=== PATIENT | female | born 1955 | race Caucasian/White ===

== ENCOUNTER → 2018-09-11 | Outpatient (CLI) | payer OTHER | LOC: M.RAD 11:20 | DX: Z12.31 Encounter for screening mammogram for malignant neoplasm of breast (principal) ==

== ENCOUNTER → 2019-09-12 | Outpatient (CLI) | payer OTHER | LOC: M.RAD 10:00 | DX: Z12.31 Encounter for screening mammogram for malignant neoplasm of breast (principal) ==

== ENCOUNTER → 2019-09-17 | Outpatient (CLI) | payer OTHER | LOC: M.RAD 09-15 16:33 | DX: R92.1 Mammographic calcification found on diagnostic imaging of breast (principal) ==

== ENCOUNTER → 2019-09-18 | Outpatient (CLI) | payer OTHER ==
--- NOTE | 2019-09-22 15:06 | PATH ---
[address] [address] PATHOLOGY RPT PROCEDURE Name: ENRICO SANABRIA Room: [facility] Aldo#: [id number] Admission: 09/18/19 Date of : 55 Discharge: Report #: [id number] Path Case #: [id number] [facility] Accession Number: [id number] . 01 Material submitted: . breast - LEFT BREAST STEREOTACTIC BIOPSY FOR CALCIFICATION. Modifiers: left . 01 Clinical history: . Left breast stereotactic biopsy for calcifications . 02 Diagnosis: Breast, left, core needle biopsy: - DUCTAL CARCINOMA IN SITU, CRIBRIFORM TYPE, NUCLEAR GRADE II/III, WITH FOCAL MICROCALCIFICATION. Size of DCIS: 4 mm, at least. - Sclerosing adenosis, focal. . (Please see comment) (LEELA:rigoberto; 09/19/2019) QTP 09/22/2019 1446 Local . 02 Comment: No evidence of invasive carcinoma is seen with the p63 and smooth muscle myosin immunoperoxidase stains. . This case has also been reviewed by Dr. Zoila Cordero MD, who agrees with the diagnosis. . The tumor present in block A3 will be sent for estrogen and progesterone expression by image analysis. The results will be issued separately. . The findings in this case were discussed with Anel nurse navigator for [facility] on 09/22/2019. (SKM:rigoberto; 09/19/2019) . 02 Electronically signed: . Link Espino MD, Pathologist NPI- [id number] . 01 Gross description: . Received in formalin labeled "Enrico Sanabria, left breast calcifications," are multiple needle cores of yellow-dubois fibrofatty tissue measuring 2.1 x 2.9 x 0.6 cm in aggregate dimensions. Additionally received in the same container is a blue plastic cassette containing multiple needle cores of yellow-dubois fibrofatty tissue measuring 2.9 x 1.9 x 0.7 cm in aggregate dimensions. The tissue in the cassette is transferred to A1 and the remaining tissue is submitted in its entirety in cassette A2 and A3. The cold ischemic time is 5 [place] [address] PATHOLOGY RPT PROCEDURE Name: ISIS SANABRIAMARIYA Eddy Room: [facility]#: [id number] Admission: 09/18/19 Date of : 55 Discharge: Report #: [id number] Path Case #: [id number] formalin fixation time is 15 hours and 15 minutes. (TSD; 09/18/2019) TOB/TOB 09/18/2019 1718 Local . 02 Pathologist provided ICD-10: D05.12, N60.22 . 02 CPT . 443478, V48755, R43002 Specimen Comment: A courtesy copy of this report has been sent to [phone] Specimen Comment: [phone], Specimen Comment: Report sent to ,DR ANDERSON,DR LEIVA / DR GLASER Performed at: 01 [facility] [address] [id number] MD Mark Hay MD Phone: [phone] Performed at: 02 [facility] [address] [id number] MD Alireza Gonzáles MD Phone: [phone]
== END | disposition home or self-care (01) ==
LOC: M.RAD 07:43
DX: N60.42 Mammary duct ectasia of left breast (principal); D05.12 Intraductal carcinoma in situ of left breast; N60.22 Fibroadenosis of left breast; R92.1 Mammographic calcification found on diagnostic imaging of breast

== ENCOUNTER → 2019-09-30 | Outpatient (CLI) | payer OTHER ==
[~2019-09-30] MED LIST: OMEPRAZOLE 20 M20 M1 PO; PROZAC20 MG PO; XANAX 0.25 MG0.25 MG PO
[2019-09-30 14:09] LABS: CREATININE 0.8 mg/dL (0.6-1.3)
== END ==
LOC: M.MRI 13:20
PROVIDERS: Surgery
DX: C50.412 Malignant neoplasm of upper-outer quadrant of left female breast (principal); D05.12 Intraductal carcinoma in situ of left breast

== ENCOUNTER → 2019-10-28 | Day surgery (SDC) | payer OTHER ==
[2019-10-28 11:56] LABS: HEMATOCRIT 38.7 % (37.0-47.0); HEMOGLOBIN 13.3 gm/dL (12.0-15.0); MCH 29.3 pg (26.0-34.0); MCHC 34.3 g/dL (28.0-37.0); MCV 85.6 fL (80.0-100.0); MPV 6.6 fl. (7.2-11.1); RBC 4.53 mil/uL (4.20-5.00); RDW-CV 13.7 % (10.5-14.5); WBC 4.6 thou/uL (4.0-11.0)
[2019-10-28 12:05] LABS: CALCIUM 9.5 mg/dL (8.5-10.1); CREATININE 0.9 mg/dL (0.6-1.3); POTASSIUM 3.6 mmol/L (3.5-5.1)
[2019-10-28 12:09] LABS: ALBUMIN 3.6 g/dL (3.4-5.0); TOTAL BILIRUBIN 0.6 mg/dL (<0.1-1.0); TOTAL PROTEIN 6.8 g/dL (6.4-8.2)
--- NOTE | 2019-10-28 16:45 | EKG ---
[place] [address] ELECTROCARDIOGRAM REPORT Name: ENRICO SANABRIA Room: [facility]#: [id number] Admission: 10/28/19 Attend Phys: Oralia Marx MD Discharge: Date of : 55 Report #: [id number] THIS REPORT FOR: //name// [facility] Test Date: 2019-10-28 Test Time: 11:38:19 Pat Name: ENRICO SANABRIA Department: Room: Gender: Trauma Therapist: : 1955 Requested By: Conner Patel Order Number: [id number] Uche MD: Hipolito Padilla Measurements Intervals [place] Rate: 59 P: 22 WI: 184 QRS: 41 QRSD: 103 T: 6 QT: 443 QTc: 439 Interpretive Statements Sinus rhythm No previous ECG available for comparison Electronically Signed On 10-28-2019 16:44:44 CUSTOMER ACQUISITION SPECIALIST by Hipolito Padilla [email or web address] <ELECTRONICALLY SIGNED> By: Hipolito Padilla MD, [facility] 10/28/19 1644 1138 1138 Hipolito Padilla MD, FACC /EPI
--- NOTE | 2019-11-03 10:07 | PATH ---
[address] [address] PATHOLOGY RPT PROCEDURE Name: JARVISANTONINOISISELIERDAMARI Surjit Room: [facility]#: [id number] Admission: 10/28/19 Date of : 55 Discharge: Report #: [id number] Path Case #: [id number] L[facility] Accession Number: [id number] . 01 Material submitted: . PART A: breast - L BREAST DCIS, LONG ST-LAT, SHORT STI-SUP, DOUBLE STI-DEEP. Modifiers: left PART B: breast - RIGHT BREAST . Modifiers: right PART C: breast - LEFT BREAST LATERAL MARGIN, STITCH MCKE[place] NEW LATERAL MARGIN. Modifiers: left PART D: breast - LEFT BREAST SUPERIOR MARGIN, STITCH MC[place] NEW SUPERIOR MARGIN. Modifiers: left PART E: breast - LEFT BREAST MEDIAL MARGIN, STITCH MCKEON NEW MARGIN. Modifiers: left PART F: breast - LEFT BREAST. Modifiers: left . 01 Clinical history: . Malignant neoplasm left breast/acquired absence of breast Left breast lumpectomy Right breast mastopexy . 02 Diagnosis: A. Left breast DCIS: - RESIDUAL DUCTAL CARCINOMA IN SITU (DCIS), NUCLEAR GRADE II, CRIBRIFORM TYPE, INCLUDING INVOLVEMENT OF PAPILLOMA, IN ASSOCIATION WITH CHANGES OF PRIOR BIOPSY INCLUDING CYLINDRICAL BIOPSY MARKER, SPANNING 7 MM, WITH ALL SURGICAL MARGINS FREE OF INVOLVEMENT AND CLOSEST (BOTH MEDIAL AND LATERAL TOWARDS SUPERIOR), 6 MM AWAY. SEE COMMENT. . B. Right breast: - Benign skin and breast tissue, negative for atypia. . C. Left breast lateral margin: - Benign breast tissue consisting of a great predominance of fat, negative for atypia. . D. Left breast superior margin: - Benign fat, without breast epithelial tissues. . E. Left breast medial margin: - Benign breast tissue, negative for atypia. . F. Left breast: - Benign skin and fibrofatty tissue without breast epithelial tissues. . (DANNY:urban; 10/31/2019) MBR 10/31/2019 1430 Local . 02 [place] [address] PATHOLOGY RPT PROCEDURE Name: ENRICO SANABRIA Room: [facility].R.#: [id number] Admission: 10/28/19 Date of : 55 Discharge: Report #: [id number] Path Case #: [id number] Comment: Surgical Pathology Cancer Case Summary . Procedure ___ Excision (less than total mastectomy) . Specimen Laterality ___ Left . + Tumor Site + ___ Not specified . Size (Extent) of DCIS Estimated size (extent) of DCIS is at least 7 mm + Number of blocks with DCIS: 4 + Number of blocks examined: 48 . Histologic Type ___ Ductal carcinoma in situ . + Architectural Patterns + ___ Cribriform . Nuclear Grade ___ Grade II (intermediate) . Necrosis ___ Not identified . Margins ___ Uninvolved by DCIS Distance from closest margin: ___ Greater than 6 mm. See comment. . Regional Lymph Nodes ___ No lymph nodes submitted or found . . PATHOLOGIC STAGE CLASSIFICATION (pTNM, AJCC 8th Edition) Primary Tumor (pT) ___ pTis (DCIS):Ductal carcinoma in situ . Regional Lymph Nodes (pN) ___ pNX:Regional lymph nodes cannot be assessed (eg, not removed for pathological study or previously removed) . + Ancillary Studies + ___ Breast Biomarker Testing Performed on Previous Biopsy + ___ Testing Performed on A3) [place] [address] PATHOLOGY RPT PROCEDURE Name: ENRICO SANABRIA Room: [facility]..#: [id number] Admission: 10/28/19 Date of : 55 Discharge: Report #: [id number] Path Case #: [id number] . + Estrogen Receptor (ER) + ___ Positive 95% . + Progesterone Receptor (PgR) + ___ Positive 90% . + Microcalcifications + ___ Not identified . + Clinical History + ___ Other: Previous left breast stereotactic biopsy for calcifications showing ductal carcinoma in situ, cribriform type, nuclear grade II, spanning 4 mm ([id number]). . . The DCIS is 6 mm away from the lateral margin (A7) and 6 mm away from the medial margin (A5) both taken from towards the superior aspect, however, the final margins are likely of greater distance away because of the additional lateral superior and medial marginal tissues submitted (C through E). . (DANNY:urban; 10/31/2019) . 02 Electronically signed: . Conrado Yao MD, Pathologist NPI- [id number] . 01 Gross description: . A. The specimen is received in formalin, labeled "Enrico Sanabria, left breast DCIS" and consists of an oriented 112 g lumpectomy specimen with a long stitch lateral short stitch superior, and double deep. It measures 11.0 cm S-I, 5.7 cm A-P, 2.5 cm L-M, and is inked as follows: superior-blue, inferior-green, medial-orange, lateral-yellow, anterior-red, and posterior-black. It is sectioned from superior to inferior revealing a pink-eckert mass measuring 2.0 x 1.5 x 0.8 cm and is 0.5 cm from the lateral, 0.8 cm from medial, 1.6 cm from anterior, 1.1 cm from posterior, greater than 1 cm from inferior, and greater than 3 cm from superior. Adjacent and surrounding the mass are extensive biopsy changes. Present in the inferior aspect of the mass is a cylindrical biopsy marker. The rest of the parenchyma consists of yellow lobulated tissue with scant scattered fibrous streaks and no additional masses or lesions. The specimen is represenatively submitted to include the entire mass/biopsy site as follows: . A1-A2: Superior, perpendicular A3-A17: Entire mass/biopsy changes from superior to inferior as follows: A4-A5: Bisected sales representative section from most superior A6-A8: [place]ected [place] [address] PATHOLOGY RPT PROCEDURE Name: ENRICO SANABRIA Room: [facility]#: [id number] Admission: 10/28/19 Date of : 55 Discharge: Report #: [id number] Path Case #: [id number] A9-A11: Trisected full-thickness section A12-A14: Trisected full-thickness section A15-A17: Resistance Welding Machine Operator from posterior aspect of slices A18-A19: Bisected slice inferior to mass A20-A22: Full-thickness slice, trisected superior to mass A23: Inferior margin, perpendicular . The specimen was collected at 2:19 PM on 10/28/2019 and placed in formalin at 2:51 PM. The cold ischemic time is 32 minutes and the total formalin fixation time is greater than 6 hours but less than 72 hours. . B. The specimen is received in formalin, labeled "Enrico Sanabria, right breast" and consists of 6 segments of unoriented yellow orange fibroadipose tissue partially covered by unremarkable pink-eckert skin measuring 20.8 x 13.0 x 3.4 cm weighing 320 g. Sectioning reveals approximately 5% fibrous tissue and no masses or lesions. Resistance Welding Machine Operator sections are submitted in B1-B2. . C. The specimen is received in formalin, labeled "Enrico Sanabria, left breast lateral margin" and consists of an elongate segment of yellow fibroadipose tissue measuring 12.3 x 2.6 x 1.3 cm (14 g). There are 3 sutures glistening the new lateral margin and this margin is inked yellow. Sectioning reveals no gross lesions and sales representative alternating sections are submitted in C1-C7. . D. The specimen is received in formalin, labeled "Enrico Sanabria, left breast superior margin" and consists of a 3 g segment of yellow lobulated tissue measuring 4.1 x 2.0 x 0.9 cm. A suture is present designating the new lateral superior margin and this margin is inked blue. It is sectioned revealing no gross lesions and entirely submitted in D1-D4. . E. The specimen is received in formalin, labeled "Enrico Sanabria, left breast medial margin" and consists of a 11 g segment of yellow lobulated tissue measuring 5.0 x 4.0 x 1.0 cm. A suture is present designating the new medial margin and this margin is inked red. It is sectioned revealing no gross lesions and entirely submitted in E1-E9. . F. The specimen is received in formalin, labeled "Enrico Sanabria, left breast" and consists of an unoriented elliptical segment of pink-eckert skin with underlying yellow orange fibroadipose tissue measuring 22.6 x 7.8 x 2.3 cm weighing 154 g. One lateral edge is inked blue, the opposite yellow, and the deep black. Sectioning reveals minimal (less than 1% fibrous tissue) and no masses or lesions. Resistance Welding Machine Operator sections are submitted in F1-F3. (DEVENDRA; 10/29/2019) SYU/LOIDA 10/31/[address] [place] [address] . Pathologist provided ICD-10: D05.12 [place] [address] PATHOLOGY RPT PROCEDURE Name: ENRICO SANABRIA Surjit Room: [facility]#: [id number] Admission: 10/28/19 Date of : 55 Discharge: Report #: [id number] Path Case #: [id number] . 02 CPT . 780283, [id number], [id number], [id number], [id number], [id number] Specimen Comment: A courtesy copy of this report has been sent to [phone] Specimen Comment: [phone], Specimen Comment: Report sent to , and Performed at: [address] [facility], [place], [place] [id number] MD Mark Hay MD Phone: [phone] Performed at: 02 [facility] [address], [place], [place] [id number] MD Conrado Yao MD Phone: [phone]
--- NOTE | 2019-11-18 13:42 | OP ---
[address] [address] OPERATIVE REPORT Name: ENRICO SANABRIA Room: [facility]#: [id number] Admission: 10/28/19 Attend Phys: Oralia Marx MD Discharge: Date of : 55 Report #: [id number] THIS REPORT FOR: //name// CC: BERNIE Marx DATE OF SERVICE: 10/28/2019 POSTOPERATIVE DIAGNOSIS: Left breast cancer with acquired breast asymmetry. SURGEON: Luz Tirado MD VOLTMETER OPERATOR: irving, surgical garment assembly supervisor. INDICATION FOR PROCEDURE: This is a female with a diagnosis of left breast cancer. She plans to undergo breast conserving therapy as well as lumpectomy with Dr. Marx. At the same time, I will perform an oncoplastic breast reconstruction on the left as well as a right breast mastopexy for symmetry. The patient understands the risks including but not limited to pain, bleeding, scar, infection, delayed wound healing, changes in nipple sensation, loss of nipple, need for another operation and/or procedure. She understands that the left breast will be left slightly larger with the nipple placed slightly lower and left in anticipation of radiation changes. All questions answered. The patient states that she desires to proceed. DESCRIPTION OF PROCEDURE: The patient was met in the preoperative holding area. She was marked in the standing position with a typical Jose pattern with 10 cm equal lateral limb with the Levaranguy's point placed 26 cm from the sternal notch bilaterally. She was then brought to the operating suite. SCDs were placed. All pressure points were padded. General anesthesia was induced. She was prepped and draped in sterile fashion. A timeout was then performed. Dr. Marx then performed the left-sided lumpectomy. At the same time, I performed a right breast mastopexy. A 10 cm superior medial pedicle was marked. The nipple was then marked with a 42 mm nipple marker. The nipple was then incised and the pedicle was sharply deepithelialized. The inferior breast tissue was then excised beginning from medially to laterally using Bovie cautery. Care was taken to cauterize all bleeding points. The wound was then copiously irrigated. Hemostasis was achieved. The pedicle was then inspected and found to be bleeding bright red with no evidence of venous congestion. The total specimen weighed 367 grams. This was sent for permanent pathology. The Jose pattern was then tailored tacked together. At this point, Dr. Marx was finished with a left breast lumpectomy. Attention was turned to the left breast. A 10 cm superior medial pedicle was marked. The nipple was then marked with a 42 mm nipple marker. The nipple was then incised and then the pedicle was sharply [place] [address] OPERATIVE REPORT Name: ENRICO SANABRIA [id number] Admission: 10/28/19 Attend Phys: Oralia Marx MD Discharge: Date of : 55 Report #: [id number] inferior breast tissue was then excised beginning from medially to laterally, taking care to preserve lateral breast tissue to fill in the subsequent lumpectomy defect. This lateral breast tissue was then pedicled and advanced superiorly into the lumpectomy defect and secured with 2-0 PDS sutures to the chest wall . The wound was then copiously irrigated. Meticulous hemostasis was achieved. Attention was then turned to the nipple. The pedicle was bleeding bright red. There is no evidence of venous congestion. The incisions were then tailor tacked closed. The patient was then sat in upright position and the new location of the NAC to be determined. On the left breast, this was placed 5 cm from the IMF and on the right side, it was placed 6 cm from the IMF in anticipation of radiation changes. The patient was then laid supine. The specimens were then sent for a total of left breast weighed 315 grams specimen. The nipple was then inset in layers. The remainder of the Jose pattern incision was then closed also in layers using Monocryl suture. The patient was then placed in a soft dressing. Counts were correct at completion of the case. There were no complications. Total EBL was 50 mL. Urine Output: Please see anesthesia record. SPECIMENS: Left and right breast tissue. Again, left breast specimen weighed 315 grams right breast specimen weighed 367 grams. <ELECTRONICALLY SIGNED> By: Luz Tirado MD 11/18/19 1342 1022 1103Luz Tirado MD /nt
--- NOTE | 2019-11-18 16:11 | OP ---
[facility] [address] [place] [address] OPERATIVE REPORT Name: ENRICO SANABRIA Room: [facility]#: [id number] Admission: 10/28/19 Attend Phys: Oralia Marx MD Discharge: Date of : 55 Report #: [id number] THIS REPORT FOR: //name// CC: BERNIE Marx DATE OF SERVICE: 10/28/2019 PREOPERATIVE DIAGNOSIS: Malignant neoplasm, upper outer quadrant, left female breast. POSTOPERATIVE DIAGNOSIS: Malignant neoplasm, upper outer quadrant, left female breast. PROCEDURES: 1. Left breast seed localized lumpectomy. 2. BioZorb placement. SURGEON: Oralia Marx MD GRAVEL ROOFER: None. ANESTHESIA: General anesthesia. ESTIMATED BLOOD LOSS: 10 mL. COMPLICATIONS: None. FINDINGS: Both of the Magseed clips were within the mammographic specimens. SPECIMENS: 1. Left breast cancer. 2. Left breast new lateral margin, stitch mello new margin. 3. Left breast new superior margin. 4. Left breast new medial margin. DRAINS: None. COMPLICATIONS: None. DISPOSITION: Remains in the OR for the remainder of the procedure with Dr. Tirado. INDICATIONS FOR PROCEDURE: The patient is a 64-year-old female with imaging on 09/12/2019 and 09/17/2019 at [facility] showing a 3.3 cm region of intraductal [place] [address] OPERATIVE REPORT Name: MAHSAHAILEYISISELIERDAMARI Surjit Room: [facility]#: [id number] Admission: 10/28/19 Attend Phys: Oralia Marx MD Discharge: Date of : 55 Report #: [id number] pleomorphic calcifications at the 2 o'clock left breast 7 cm from nipple. Biopsy showed grade 2 DCIS, ER/CT positive. She subsequently had an MRI, which showed a large area of possible non-mass enhancement, and risks and benefits for lumpectomy were discussed with the patient and she was interested in lumpectomy. She was also interested in combination procedure with Plastic Surgery. Risks and benefits for lumpectomy with BioZorb placement were discussed with the patient, delineated in the H and P and she agreed to proceed. DESCRIPTION OF PROCEDURE: The patient was brought to the operating room and after informed consent had been obtained, she was placed under general anesthesia in the supine position with bilateral arms extended at her sides. Preoperatively, she has been taken for clip localization to bracket the calcifications. The bilateral breasts and axilla were prepped and draped in normal sterile manner. The site of highest activity using the localizer was marked out over the skin. The skin incision was as per Dr. Tirado's preoperative markings, 9 cm in length, 4 cm from nipple at 2 o'clock position. This incision was made with a knife after the skin anesthesia, 1% lidocaine plain and 0.5% Marcaine with epinephrine. This was deep into the subcutaneous tissues using the Bovie electrocautery. A path was created toward the site of the highest activity of the localizer clips. Once the 1st was identified, I continued dissection past this until the second localizer clip was identified as well. I continued to dissect circumferentially removing a very large specimen. Once completely removed, this was labeled for orientation purposes. Specimen image was obtained and both localizer clips were indeed within the specimen. I then turned to the region of the margins. The region of the lateral margin was grasped with an Allis clamp and Bovie electrocautery was used to excise thin remnant tissue to encompass the new lateral margin. This was also repeated with the superior margin and the medial margins. The inferior margin was felt to be well away from the clip as was the posterior and anterior margins. Therefore, I did not proceed with further excision of margins in these areas. At this point, 4 stay sutures of 3-0 PDS were placed in the four quadrants of the lumpectomy bed. A 2 x 3 x 1 BioZorb was placed in the lumpectomy bed and secured in 4 locations. As these sutures were tied down, the remainder of the procedure was then turned over to Dr. Tirado. <ELECTRONICALLY SIGNED> By: Oralia Marx MD 11/18/19 1611 1502 [id number] Marx MD /nt
== END | disposition home or self-care (01) ==
LOC: M.SUR 06:39
PROVIDERS: Anesthesiology
DX: D05.12 Intraductal carcinoma in situ of left breast (principal); D24.2 Benign neoplasm of left breast; R92.1 Mammographic calcification found on diagnostic imaging of breast; Z98.890 Other specified postprocedural states; Z79.899 Other long term (current) drug therapy

== ENCOUNTER → 2020-04-13 | Outpatient (CLI) | payer OTHER | LOC: M.RAD 10:32 | DX: D05.12 Intraductal carcinoma in situ of left breast (principal) ==

== ENCOUNTER → 2020-09-20 | Outpatient (CLI) | payer OTHER | LOC: M.RAD 10:31 | PROVIDERS: ATTEND Radiology Radiation Oncology | DX: D05.12 Intraductal carcinoma in situ of left breast (principal) ==

== ENCOUNTER → 2021-06-06 | Outpatient (CLI) | payer OTHER | LOC: M.ULTRA 11:30 | PROVIDERS: ATTEND Internal Medicine Hematology & Oncology | DX: D05.12 Intraductal carcinoma in situ of left breast (principal); N63.23 Unspecified lump in the left breast, lower outer quadrant ==

== ENCOUNTER → 2021-09-23 | Outpatient (CLI) | payer OTHER | LOC: M.RAD 10:36 | PROVIDERS: ATTEND Radiology Radiation Oncology | DX: D05.12 Intraductal carcinoma in situ of left breast (principal) ==